=== PATIENT | female | born 1995 | race African-American/Black ===

== ENCOUNTER 2021-07-10 20:56 | Emergency (ER) | payer SELFPAY | END 2021-07-10 21:45 | disposition home or self-care (01) | LOC: CSHERS 20:56 | DX: R09.1 Pleurisy (principal); R05.1 Acute cough; F17.210 Nicotine dependence, cigarettes, uncomplicated | CPT/HCPCS: 99283 ==

== ENCOUNTER 2021-08-29 16:35 | Emergency (ER) | payer SELFPAY ==
[2021-08-31 01:28] LABS: SARS-CoV-2 PCR by NAA Not Detected (NotDetected)
== END 2021-08-29 17:37 | disposition home or self-care (01) ==
LOC: CSHERS 16:35
DX: R05.9 Cough, unspecified (principal); F17.210 Nicotine dependence, cigarettes, uncomplicated; Z79.51 Long term (current) use of inhaled steroids; Z20.822 Contact with and (suspected) exposure to COVID-19
CPT/HCPCS: 87804; 99284; U0003; U0005

== ENCOUNTER 2025-05-11 16:48 | Outpatient (CLI) | payer OTHER | END 2025-05-11 16:49 | disposition home or self-care (01) | LOC: CSHRAD 16:48 | PROVIDERS: ATTEND Nurse Practitioner Family | DX: M25.561 Pain in right knee (principal); M25.562 Pain in left knee ==